=== PATIENT | female | born 1985 | race African-American/Black ===

== ENCOUNTER 2019-02-16 14:43 | Observation (INO) | payer BC, OTHER | END 2019-02-16 17:00 | disposition home or self-care (01) | LOC: MW.OBCHECK 14:43 → MW.OB 14:44 → MW.OBCHECK 15:02 → MW.OB 15:03 | PROVIDERS: ADMIT Obstetrics & Gynecology; ATTEND Obstetrics & Gynecology | DX: O16.3 Unspecified maternal hypertension, third trimester (principal); Z3A.35 35 weeks gestation of pregnancy; Z34.90 Encounter for supervision of normal pregnancy, unspecified, unspecified trimester | CPT/HCPCS: 59025; 81003; 87081; G0378 ==

== ENCOUNTER 2019-05-03 03:34 | Emergency (ER) | payer BC ==
[2019-05-03] MEDS ORDERED: Sodium Chloride 0.9% 1,000 ML IV ONE (04:00)
[2019-05-03 04:30] LABS: BLOOD UREA NITROGEN,BUN 16 mg/dL (7.0-18.0); CARBON DIOXIDE,CO2 26.5 mmol/L (21.0-32.0); CHLORIDE,CL 103 mmol/L (98-107); GLUCOSE RANDOM 108 mg/dL (74-106); POTASSIUM,K 3.7 mmol/L (3.5-5.1); SODIUM,NA 139 mmol/L (136-145)
[2019-05-03] MEDS ORDERED: Iopamidol 755 Mg/ML 100 ML Bottle IVPUSH ONE (04:47)
--- NOTE | 2019-05-03 05:18 | CT ---
INDICATION: Chest and scapular pain with elevated blood pressure. TECHNIQUE: CT chest PE was acquired with 100 cc Isovue 370 intravenous contrast. COMPARISON: None. FINDINGS: Heart and vasculature: Contrast opacification of the pulmonary arterial tree is adequate. No sign of pulmonary embolism. Heart size is normal. Thoracic aorta and pulmonary artery are normal in caliber. Lungs and pleural: No acute consolidation or pneumothorax. Trace right pleural fluid. Lymph nodes/mediastinum: No mediastinal, hilar, or axillary adenopathy. Thyroid gland is normal. Chest wall: No masses. Upper abdomen: Normal. Bones: Unremarkable for age. IMPRESSION: 1. No evidence of pulmonary embolus. 2. Trace right pleural fluid, otherwise unremarkable chest CT. Please note that all CT scans at this facility use dose modulation, iterative reconstruction, and/or weight-based dosing when appropriate to reduce radiation dose to as low as reasonably achievable. Dictated by Jeremy Carroll MD @ May 03 2019 5:06AM Signed by Dr. Jeremy Carroll @ May 03 2019 5:16AM
[2019-05-03] MEDS ORDERED: Ketorolac 30 MG/ML SDV IM ONE (05:23)
[2019-05-03] MEDS ORDERED: Ketorolac 30 MG/ML SDV IVPUSH ONE (05:24)
--- NOTE | 2019-05-03 06:23 | EDM.PDOC ---
ED HPI GENERAL MEDICAL PROBLEM - General Chief Complaint: Back Pain or Injury Stated Complaint: BACK PAIN Time Seen by Provider: 05/03/19 06:14 - History of Present Illness INITIAL COMMENTS - FREE TEXT/NARRATIVE: HISTORY AND PHYSICAL: History of present illness: Patient 33-year-old black female approximately 3 months who presents with a concern of upper back pain is in the right scapular region. There's been no fever chills nausea vomiting cough or shortness of breath. Patient developed some hypertension and was put on nifedipine she felt dizzy with this and discontinued this on her own 3 weeks prior. Review of systems: As per history of present illness and below otherwise all systems reviewed and negative. Past medical history: As per history of present illness and as reviewed below otherwise noncontributory. Surgical history: As per history of present illness and as reviewed below otherwise noncontributory. Social history: No reported history of drug or alcohol abuse. Family history: As per history of present illness and as reviewed below otherwise noncontributory. Physical exam: HEENT: Atraumatic, normocephalic, pupils reactive, negative for conjunctival pallor or scleral icterus, mucous membranes moist, throat clear, neck supple, nontender, trachea midline. Lungs: Clear to auscultation, breath sounds equal bilaterally, chest nontender. Heart: S1S2, regular, negative for clicks, rubs, or JVD. Abdomen: Soft, nondistended, nontender. Negative for masses or hepatosplenomegaly. Negative for costovertebral tenderness. Pelvis: Stable nontender. Genitourinary: Deferred. Rectal: Deferred. Extremities: Atraumatic, negative for cords or calf pain. Neurovascular unremarkable. Neuro: Awake, alert, oriented. Cranial nerves II through XII unremarkable. Cerebellum unremarkable. Motor and sensory unremarkable throughout. Exam nonfocal. Diagnostics: CBC CMP troponin PT/INR d-dimer CTA chest Therapeutics: Saline 1 L bolus Toradol 30 mg IV Impression: #1 upper back pain Definitive disposition and diagnosis as appropriate pending reevaluation and review of above. Right Shoulder Pain Score (Numeric/FACES): 9 - Related Data Allergies Allergy/AdvReac Type Severity Reaction Status Date / Time No Known Allergies Allergy Verified 05/03/19 03:41 Home Meds: Home Meds . [No Known Home Meds] 05/03/19 [History] Past Medical History - Past Health History Medical/Surgical History: Denies Medical/Surgical History HEENT History: Reports: None Cardiovascular History: Reports: Hypertension Respiratory History: Reports: None Gastrointestinal History: Reports: None Genitourinary History: Reports: None [employer] History: Reports: Musculoskeletal History: Reports: None Neurological History: Reports: None Psychiatric History: Reports: None Endocrine/Metabolic History: Reports: None Hematologic History: Reports: None Immunologic History: Reports: None Oncologic (Cancer) History: Reports: None Dermatologic History: Reports: None - Infectious Disease History Infectious Disease History: Reports: Chicken Pox - Past Imaging History Past Imaging History: Reports: None Social & Family History - Family History Family Medical History: Noncontributory Endocrine/Metabolic: Reports: Diabetes, type II - Tobacco Use Smoking Status *Q: Never Smoker Second Hand Smoke Exposure: No - Caffeine Use Caffeine Use: Reports: None - Recreational Drug Use Recreational Drug Use: No ED ROS GENERAL - Review of Systems Review Of Systems: ROS reveals no pertinent complaints other than HPI. ED EXAM, GENERAL - Physical Exam Exam: See Below (See dictation) Course - Vital Signs Text/Narrative:: I discussed patient's presentation low-pressure and medical noncompliance regarding her hypertension with Dr. mullins he requested she follow up with primary care for reevaluation of blood pressure and agrees with Delfina as directed impression remains #1 upper back pain #2 pleurisy #3 hypertension #4 medical noncompliance Last Recorded V/S: Last Vital Signs Temp 36.5 C 05/03/19 03:42 Pulse 84 05/03/19 06:25 Resp 18 05/03/19 06:25 BP 189/102 H 05/03/19 06:25 Pulse Ox 98 05/03/19 06:25 - Orders/Labs/Meds Orders: Active Orders 24 hr Category Date Time Status EKG Documentation Completion [RC] STAT Care 05/03/19 04:00 Active INR,PT,PROTHROMBIN TIME [COAG] Stat Lab 05/03/19 06:21 Received TROPONIN I [CHEM] Stat Lab 05/03/19 04:00 Received Labs: Laboratory Tests 05/03/19 05/03/19 05/03/19 Range/Units 04:00 04:00 04:00 WBC 8.28 (4.0-11.0) K/uL RBC 5.15 (4.30-5.90) M/uL Hgb 14.5 (12.0-16.0) g/dL Hct 44.4 (36.0-46.0) % MCV 86.2 (80.0-98.0) fL MCH 28.2 (27.0-32.0) pg MCHC 32.7 (31.0-37.0) g/dL RDW Std Deviation 42.8 (28.0-62.0) fl RDW Coeff of Jo 14 (11.0-15.0) % Plt Count 239 (150-400) K/uL MPV 10.50 (7.40-12.00) fL Neut % (Auto) 57.8 (48.0-80.0) % Lymph % (Auto) 31.0 (16.0-40.0) % Geary % (Auto) 10.4 (0.0-15.0) % Eos % (Auto) 0.7 (0.0-7.0) % Baso % (Auto) 0.1 (0.0-1.5) % Neut # (Auto) 4.8 (1.4-5.7) K/uL Lymph # (Auto) 2.6 H (0.6-2.4) K/uL Geary # (Auto) 0.9 H (0.0-0.8) K/uL Eos # (Auto) 0.1 (0.0-0.7) K/uL Baso # (Auto) 0.0 (0.0-0.1) K/uL Nucleated RBC % 0.0 /100WBC Nucleated RBCs # 0 K/uL D-Dimer, Quantitative 0.23 (0.0-0.50) mg/L FEU Sodium 139 (136-145) mmol/L Potassium 3.7 (3.5-5.1) mmol/L Chloride 103 (98-107) mmol/L Carbon Dioxide 26.5 (21.0-32.0) mmol/L BUN 16 (7.0-18.0) mg/dL Creatinine 0.9 (0.6-1.0) mg/dL Est Cr Clr Drug Dosing 88.07 mL/min Estimated GFR (MDRD) > 60.0 ml/min Glucose 108 H (74-106) mg/dL Calcium 9.0 (8.5-10.1) mg/dL Total Bilirubin 0.5 (0.2-1.0) mg/dL AST 14 L (15-37) IU/L ALT 25 (14-63) IU/L Alkaline Phosphatase 78 (46-116) U/L Total Protein 8.2 (6.4-8.2) g/dL Albumin 4.0 (3.4-5.0) g/dL Globulin 4.2 H (2.6-4.0) g/dL Albumin/Globulin Ratio 1.0 (0.9-1.6) Urine Color Urine Appearance Urine pH (5.0-8.0) Ur Specific Burr (1.001-1.035) Urine Protein (NEGATIVE) mg/dL Urine Glucose (UA) (NEGATIVE) mg/dL Urine Ketones (NEGATIVE) mg/dL Urine Occult Blood (NEGATIVE) Urine Nitrite (NEGATIVE) Urine Bilirubin (NEGATIVE) Urine Urobilinogen (<2.0) EU/dL Ur Leukocyte Esterase (NEGATIVE) Urine HCG, Qual (NEGATIVE) 05/03/19 05/03/19 Range/Units 04:20 04:20 WBC (4.0-11.0) K/uL RBC (4.30-5.90) M/uL Hgb (12.0-16.0) g/dL Hct (36.0-46.0) % MCV (80.0-98.0) fL MCH (27.0-32.0) pg MCHC (31.0-37.0) g/dL RDW Std Deviation (28.0-62.0) fl RDW Coeff of Jo (11.0-15.0) % Plt Count (150-400) K/uL MPV (7.40-12.00) fL Neut % (Auto) (48.0-80.0) % Lymph % (Auto) (16.0-40.0) % Geary % (Auto) (0.0-15.0) % Eos % (Auto) (0.0-7.0) % Baso % (Auto) (0.0-1.5) % Neut # (Auto) (1.4-5.7) K/uL Lymph # (Auto) (0.6-2.4) K/uL Geary # (Auto) (0.0-0.8) K/uL Eos # (Auto) (0.0-0.7) K/uL Baso # (Auto) (0.0-0.1) K/uL Nucleated RBC % /100WBC Nucleated RBCs # K/uL D-Dimer, Quantitative (0.0-0.50) mg/L FEU Sodium (136-145) mmol/L Potassium (3.5-5.1) mmol/L Chloride (98-107) mmol/L Carbon Dioxide (21.0-32.0) mmol/L BUN (7.0-18.0) mg/dL Creatinine (0.6-1.0) mg/dL Est Cr Clr Drug Dosing mL/min Estimated GFR (MDRD) ml/min Glucose (74-106) mg/dL Calcium (8.5-10.1) mg/dL Total Bilirubin (0.2-1.0) mg/dL AST (15-37) IU/L ALT (14-63) IU/L Alkaline Phosphatase (46-116) U/L Total Protein (6.4-8.2) g/dL Albumin (3.4-5.0) g/dL Globulin (2.6-4.0) g/dL Albumin/Globulin Ratio (0.9-1.6) Urine Color YELLOW Urine Appearance CLEAR Urine pH 6.5 (5.0-8.0) Ur Specific Burr 1.015 (1.001-1.035) Urine Protein NEGATIVE (NEGATIVE) mg/dL Urine Glucose (UA) NEGATIVE (NEGATIVE) mg/dL Urine Ketones NEGATIVE (NEGATIVE) mg/dL Urine Occult Blood NEGATIVE (NEGATIVE) Urine Nitrite NEGATIVE (NEGATIVE) Urine Bilirubin NEGATIVE (NEGATIVE) Urine Urobilinogen 0.2 (<2.0) EU/dL Ur Leukocyte Esterase NEGATIVE (NEGATIVE) Urine HCG, Qual NEGATIVE (NEGATIVE) Meds: Medications Discontinued Medications Generic Name Dose Route Start Last Admin Trade Name Freq PRN Reason Stop Dose Admin Sodium Chloride 1,000 mls @ 999 mls/hr 05/03/19 04:00 05/03/19 04:07 Normal Saline IV 05/03/19 05:00 999 mls/hr .BOLUS ONE Administration Iopamidol 100 ml 05/03/19 04:47 05/03/19 04:58 Isovue-370 (76%) IVPUSH 10/28/19 04:48 100 ml ONETIME ONE Administration Ketorolac Tromethamine 30 mg 05/03/19 05:24 05/03/19 05:29 Toradol IVPUSH 05/03/19 05:25 30 mg ONETIME ONE Administration Departure - Departure Time of Disposition: 06:22 Disposition: Home, Self-Care 01 Condition: Good Clinical Impression: Back pain, Pleurisy, Hypertension, Medical non-compliance - Discharge Information Instructions: Pleurisy, [id number] Referrals: PCP,None [Primary Care Provider] - Forms: ED Department Discharge Additional Instructions: The following information is given to patients seen in the emergency department who are being discharged to home. This information is to outline your options for follow-up care. We provide all patients seen in our emergency department with a follow-up referral. The need for follow-up, as well as the timing and circumstances, are variable depending upon the specifics of your emergency department visit. If you don't have a primary care physician on staff, we will provide you with a referral. We always advise you to contact your personal physician following an emergency department visit to inform them of the circumstance of the visit and for follow-up with them and/or the need for any referrals to a consulting specialist. The emergency department will also refer you to a specialist when appropriate. This referral assures that you have the opportunity for followup care with a specialist. All of these measure are taken in an effort to provide you with optimal care, which includes your followup. Under all circumstances we always encourage you to contact your private physician who remains a resource for coordinating your care. When calling for followup care, please make the office aware that this follow-up is from your recent emergency room visit. If for any reason you are refused follow-up, please contact the [facility] emergency department at and asked to speak to the emergency department charge nurse. Delfina as directed follow-up [employer] and primary care as discussed return as needed as discussed - My Orders Last 24 Hours: My Active Orders 05/03/19 04:00 EKG Documentation Completion [RC] STAT TROPONIN I [CHEM] Stat 05/03/19 06:21 INR,PT,PROTHROMBIN TIME [COAG] Stat - Assessment/Plan Last 24 Hours: My Active Orders 05/03/19 04:00 EKG Documentation Completion [RC] STAT TROPONIN I [CHEM] Stat 05/03/19 06:21 INR,PT,PROTHROMBIN TIME [COAG] Stat
[2019-05-03 06:25] VITALS: BP 189/102; PULSE 84
== END 2019-05-03 06:42 | disposition home or self-care (01) ==
LOC: MW.ED 03:34
DX: M54.6 Pain in thoracic spine (principal); R09.1 Pleurisy; I10 Essential (primary) hypertension; Z91.14 Patient's other noncompliance with medication regimen
CPT/HCPCS: 36415; 71275; 80053; 81003; 81025; 84484; 85025; 85379; 85610; 93005; 96361; 96374; 99284; J1885; J7040; Q9967

== ENCOUNTER 2019-09-14 14:11 | Emergency (ER) | payer BC ==
--- NOTE | 2019-09-14 15:38 | CR ---
Chest: 2 views of the chest were obtained. Comparison: No prior chest x-ray, previous chest CT dated 05/03/19. Heart size and mediastinum are normal. Lungs are clear with no acute parenchymal change. Bony structures appear unremarkable. Impression: 1. Nothing acute is appreciated on 2 view chest x-ray. Diagnostic code #1 This report was dictated in [place] Standard Time
[2019-09-14 15:43] LABS: BLOOD UREA NITROGEN,BUN 10 mg/dL (7.0-18.0); CARBON DIOXIDE,CO2 23.3 mmol/L (21.0-32.0); CHLORIDE,CL 103 mmol/L (98-107); GLUCOSE RANDOM 91 mg/dL (74-106); POTASSIUM,K 3.4 mmol/L (3.5-5.1); SODIUM,NA 139 mmol/L (136-145)
--- NOTE | 2019-09-14 17:04 | EDM.PDOC ---
ED [facility] GENERAL MEDICAL PROBLEM - General Chief Complaint: Chest Pain Stated Complaint: CHEST PAIN Time Seen by Provider: 09/14/19 14:21 - History of Present Illness INITIAL COMMENTS - FREE TEXT/NARRATIVE: HPI 34-year-old female with HTN presents for evaluation of proximally 3 days of poorly characterize left upper chest pain that is provoked by palpation, and is unchanged by physical activity. No shortness breath, no fevers, chills, or trauma. Patient denies recent immobilization, leg trauma, estrogen use, surgery in the last four weeks, hemoptysis, or malignancy in the last 6 months. M/S/F/SocHx notable for: please see HPI; remainder reviewed with patient and in chart. ROS: Negative constitutional, eye, cardiovascular, pulmonary, GI, , MSK, skin , neurologic, psychiatric, endocrine unless noted in the HPI. Exam Gen: Pleasant, non-toxic appearing, resting comfortably. HEENT: NC, AT, PEERL, EOMI. Resp: Clear to auscultation bilaterally, normal work of breathing. Card: RRR with no M/R/G, no crackles in lung bases, no pedal edema, no JVD appreciated. GI: NT/ND Vascular: Both ankles, calves, and thighs of equal size, no calf tenderness to palpation bilaterally. MSK: left upper medial pectoral tenderness to palpation that reproduces the patients presenting complaint. No visible deformities, strength and tone WNL. Skin: Normal color with no visible lesions. Neuro: AO x 3, no facial asymmetry, vision and hearing WNL. Psych: Mood and affect appropriate. Labs / Imaging (pertinent): WBC 6.32, Hb 13.2, Na 139, K 3.4. Troponin <0.050 d-dimer 0.22 d-dimer 0.22 EKG: EKG: SR 104 bpm, no TX segment depressions, QRS 91 ms, nonspecific J-point depression in leads V3-V6. CXR: nothing acute is appreciated on 2 view chest x-ray. MDM Previous chart, nursing note, and vitals reviewed. A: 34-year-old female with HTN presents for evaluation of proximally 3 days of poorly characterize left upper chest pain that is provoked by palpation, and is unchanged by physical activity. DDx and Evaluation: * ACS - doubt ACS given a non-ischemic EKG and a negative troponin greater than six hours from maximal symptom onset. * UA - unlikely given the atypical history and alternate diagnosis. HEART score 2 (Hx - 0, EKG - 1, age - 0, risk factors - 1, troponin - 0; 30 day MACE: less than or equal to 1.7%). Patient appropriate for outpatient follow-up. * Pericarditis - consider pericarditis unlikely given the lack of TX segment depressions as well as the absence of diffuse ST-segment elevations, lack of reduction of pain when supine, and lack of a friction rub. * Myocarditis - unlikely given the negative troponin and an EKG without characteristic TX-segment or ST-segment changes. * Dissection - dissection is unlikely given symptoms, and lack of mediastinal widening. * PE Wells' (Signs & Sx of DVT - 0, PE is #1 or equally likelihood - 0, HR > 100 - [1.5], immobilization of >=3 days or surgery in last 28 days - 0, prior DVT or PE - 0, hemoptysis - 0, malignancy w/ tx in last 6 mo or palliative - 0) 1.5; as such the patients negative d-dimer is appropriate for PE rule out/risk stratification. * Mediastinal Air - no evidence by CXR or auscultation. * Pneumothorax - no evidence by CXR or physical exam. * MSK - doubt given lack of reproducibility on exam. * Endocarditis - no identifiable risk factors, patient afebrile, no new murmurs appreciated on exam; doubt. * GI (Esophageal rupture, GERD) - esophageal rupture effectively excluded given the lack of mediastinal widening, non-toxic appearance, and lack of identifiable risk factors. While not definitively excluded, further evaluation of GERD is deferred to an outpatient setting Suspect GERD given the relatively exclusion of the above diagnoses as well as significant relief with a GI cocktail. ED Course: Vital signs remained stable and within clinically acceptable limits. Disposition: Discharge with PCP follow up. Return to care precautions given verbally and in writing. Impression: Chest Pain. 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: Musculoskeletal History: Reports: None Neurological History: Reports: None Psychiatric History: Reports: None Endocrine/Metabolic History: Reports: None Hematologic History: Reports: None Immunologic History: Reports: None Oncologic (Cancer) History: Reports: None Dermatologic History: Reports: None - Infectious Disease History Infectious Disease History: Reports: Chicken Pox - Past Imaging History Past Imaging History: Reports: None Social & Family History - Family History Family Medical History: Noncontributory Endocrine/Metabolic: Reports: Diabetes, type II - Tobacco Use Smoking Status *Q: Never Smoker - Caffeine Use Caffeine Use: Reports: None - Recreational Drug Use Recreational Drug Use: No ED ROS GENERAL - Review of Systems Review Of Systems: See Below ED EXAM, GENERAL - Physical Exam Exam: See Below Course - Vital Signs Last Recorded V/S: Last Vital Signs Temp 36.4 C 09/14/19 14:24 Pulse 111 H 09/14/19 14:24 Resp 18 09/14/19 14:24 BP 184/103 H 09/14/19 14:24 Pulse Ox 100 09/14/19 14:24 - Orders/Labs/Meds Orders: Active Orders 24 hr Category Date Time Status EKG 12 Lead [EKG Documentation Completion] [RC] STAT Care 09/14/19 14:56 Active Labs: Laboratory Tests 09/14/19 09/14/19 09/14/19 Range/Units 14:50 14:50 14:50 WBC 6.32 (4.0-11.0) K/uL RBC 4.77 (4.30-5.90) M/uL Hgb 13.2 (12.0-16.0) g/dL Hct 40.5 (36.0-46.0) % MCV 84.9 (80.0-98.0) fL MCH 27.7 (27.0-32.0) pg MCHC 32.6 (31.0-37.0) g/dL RDW Std Deviation 40.8 (28.0-62.0) fl RDW Coeff of Jo 13 (11.0-15.0) % Plt Count 251 (150-400) K/uL MPV 10.30 (7.40-12.00) fL Neut % (Auto) 36.7 L (48.0-80.0) % Lymph % (Auto) 55.2 H (16.0-40.0) % [place] % (Auto) 7.3 (0.0-15.0) % Eos % (Auto) 0.6 (0.0-7.0) % Baso % (Auto) 0.2 (0.0-1.5) % Neut # (Auto) 2.3 (1.4-5.7) K/uL Lymph # (Auto) 3.5 H (0.6-2.4) K/uL [place] # (Auto) 0.5 (0.0-0.8) K/uL Eos # (Auto) 0.0 (0.0-0.7) K/uL Baso # (Auto) 0.0 (0.0-0.1) K/uL Nucleated RBC % 0.0 /100WBC Nucleated RBCs # 0 K/uL D-Dimer, Quantitative 0.22 (0.0-0.50) mg/L FEU Sodium 139 (136-145) mmol/L Potassium 3.4 L (3.5-5.1) mmol/L Chloride 103 (98-107) mmol/L Carbon Dioxide 23.3 (21.0-32.0) mmol/L BUN 10 (7.0-18.0) mg/dL Creatinine 0.7 (0.6-1.0) mg/dL Est Cr Clr Drug Dosing 116.39 mL/min Estimated GFR (MDRD) > 60.0 ml/min Glucose 91 (74-106) mg/dL Calcium 9.7 (8.5-10.1) mg/dL Troponin I < 0.050 (0.000-0.056) ng/mL Departure - Departure Time of Disposition: 17:03 Disposition: Home, Self-Care 01 Clinical Impression: Chest pain - Discharge Information Referrals: Yared Bagley DO [Primary Care Provider] - Additional Instructions: You were in seen in the [facility] Emergency Department for evaluation of chest pain at the time of your evaluation no significant abnormalities were noted. Please read and follow all of the instructions below. Please follow up with your primary care physician within 48 hours. When calling for follow-up care, please make the office aware that this follow-up is from your recent emergency room visit. If for any reason you are refused follow-up, please contact the [facility] Emergency Department at and asked to speak to the emergency department charge nurse. Your care today was limited to identifying and treating emergent medical problems only. Many people have subtle differences in their test results that require follow up with their outpatient physician(s) to correctly determine if this represents a normal variation or concerning abnormality with respect to your specific health. The care given to you today was limited to identifying and treating emergent medical problems - you need to request a copy of all of your medical records from today's visit and follow up with your outpatient physician(s) to review both today's visit and your overall health. If you have any new symptoms or if you are at all concerned about your health please return immediately to the emergency department. Prescriptions: If you are uninsured or have financial difficulties with filling your prescription(s), you may consider using a free pharmacy discount service such as Studio ([employer]) or Fridge ([employer]). These services allow you to search for a medication on your phone (or computer) and obtain a coupon that usually has a significant discount from the list [place] at a pharmacy. Your physician as well as [facility] does not have a financial relationship with either of these services. You may also wish to speak with your physician to determine if lower cost prescriptions are possible. Obtaining primary care: 1. [facility] provides pediatrics (children), family medicine (children, adults, and some obstetrical care), and internal medicine (adults). Further specialty care is also available. Same day appointments are available. They may be contacted at [phone] and are open Friday through Friday 8 AM to 5 PM. The [facility] are located at [facility] [address] [address]. 2. [facility] offers family medicine, internal medicine, womens health, and further specialty care. [facility] may be contacted at [phone]. [facility] is located at [address] [place], [address]. 3. If you have health insurance, please also contact your insurer for a list of accepting providers under your policy, you may contact these providers for further health care. Occupational health: Work related injuries may consider following up with [facility], . Occupational health services are located at [address] [place] [address] and are open Friday through Friday from 7: 30 am to 5:00 pm. Obstetrical and Gynecological Care: [facility], , Friday through Friday 8 AM to 5 PM. [address] [facility] [place] [address]. Eyecare: If you have an eye injury you should follow up with your certified professional ergonomist or with [facility], at [phone] or [phone] , they are located at [address] [place] [address]. Dental Care Abel Molina DDS. [address] [place], [place]. Ph. [phone] Deandre Molina DDS MS. [address] [facility] [address], [place], [place]. Ph. Bobby Wang DDS. [address] [place] [address]. Ph. [phone] Jude Sanchez DDS[address] [facility] [address] [place], [place]. Ph. [phone] Kirk Hair DDS PC. [address] [facility] [address] [place], [place]. Ph. Roland Lama DDS. [address] [facility]. Ph. [phone] [facility]. [address] [place], [place]. Ph. [phone] [facility] [address] [place] [address], [place], [place]. Ph. [phone] [facility] [address] [place] [address]. Ph. [facility]. [address] [place] [address] [address] COLT Nicole. Ph. [facility]. [address] [facility] [place]. Ph. [phone] Chest Pain of Unclear Cause You have been seen for chest pain. The cause of your pain is not yet known. You should follow up with your primary care physician in the next day to discuss having a cardiac stress test within 48 hours of today. Your doctor has learned about your medical history, examined you, and checked any tests that were done. Still, it is unclear why you are having pain. The doctor thinks there is only a very small chance that your pain is caused by a life-threatening condition. Later, your primary care doctor might do more tests or check you again. Sometimes chest pain is caused by a dangerous condition, like a heart attack, aorta injury, blood clot in the lung, or collapsed lung. It is unlikely that your pain is caused by a life-threatening condition if: Your chest pain lasts only a few seconds at a time; you are not short of breath, nauseated (sick to your stomach), sweaty, or lightheaded; your pain gets worse when you twist or bend; your pain improves with exercise or hard work. Chest pain is serious. It is VERY IMPORTANT that you follow up with your regular doctor and seek medical attention immediately here or at the nearest Emergency Department if your symptoms become worse or they change. YOU SHOULD SEEK MEDICAL ATTENTION IMMEDIATELY, EITHER HERE OR AT THE NEAREST EMERGENCY DEPARTMENT, IF ANY OF THE FOLLOWING OCCURS: Your pain gets worse. Your pain makes you short of breath, nauseated, or sweaty. Your pain gets worse when you walk, go up stairs, or exert yourself. You feel weak, lightheaded, or faint. It hurts to breathe. Your leg swells. Your symptoms get worse or you have new symptoms or concerns. Sepsis Event Note - Evaluation Sepsis Screening Result: No Definite Risk - Focused Exam Vital Signs: Vital Signs Temp Pulse Resp BP Pulse Ox 09/14/19 14:24 36.4 C 111 H 18 184/103 H 100 Date Exam was Performed: 09/14/19 Time Exam was Performed: 17:03 - My Orders Last 24 Hours: My Active Orders 09/14/19 14:56 EKG 12 Lead [EKG Documentation Completion] [RC] STAT - Assessment/Plan Last 24 Hours: My Active Orders 09/14/19 14:56 EKG 12 Lead [EKG Documentation Completion] [RC] STAT
[2019-09-14 17:11] VITALS: BP 155/104; PULSE 90
== END 2019-09-14 17:29 | disposition home or self-care (01) ==
LOC: MW.ED 14:11
DX: R07.9 Chest pain, unspecified (principal); I10 Essential (primary) hypertension
CPT/HCPCS: 36415; 71046; 71046-26; 80048; 84484; 85025; 85379; 93005; 99285-25

== ENCOUNTER 2021-04-16 03:03 | Inpatient (IN) | payer BC ==
[2021-04-16] MEDS ORDERED: Tranexamic Acid 1,000 MG in Sodium Chloride 0.9% 100 ML IV PRN (03:35)
[2021-04-16] MEDS ORDERED: Sodium Chloride 0.9% 2.5 ML Syringe FLUSH PRN (03:35)
[2021-04-16] MEDS ORDERED: Sodium Chloride 0.9% 10 ML SDV IV PRN (03:35)
[2021-04-16] MEDS ORDERED: Misoprostol 200 MCG Tab PO PRN (03:35)
[2021-04-16] MEDS ORDERED: Water For Irrigation,Sterile 1,000 ML Container IRR PRN (03:35)
[2021-04-16] MEDS ORDERED: Carboprost Tromethamine 250 MCG/1 ML Amp IM PRN (03:35)
[2021-04-16] MEDS ORDERED: Lidocaine 1% 50 ML MDV INJECT PRN (03:35)
[2021-04-16] MEDS ORDERED: Methylergonovine 0.2 MG/1 ML Amp IM PRN (03:35)
[2021-04-16] MEDS ORDERED: Sodium Chloride 0.9% 10 ML Syringe FLUSH PRN (03:35)
[2021-04-16] MEDS ORDERED: Nalbuphine 10 MG/1 ML Vial IVPUSH PRN (03:35)
[2021-04-16] MEDS ORDERED: Ondansetron 4 MG/2 ML SDV IVPUSH PRN (03:35)
[2021-04-16] MEDS ORDERED: Oxytocin/0.9 % Sodium Chloride 30 UNIT/500 ML BAG IV SCH (03:45)
[2021-04-16] MEDS ORDERED: Lactated Ringers 1,000 ML IV SCH (03:45)
--- NOTE | 2021-04-16 04:13 | PCM.LDHP ---
L&D History of Present Illness - General Date of Service: 04/16/21 Admit Problem/Dx: Patient Status Order with Admit Dx/Problem 04/16/21 03:35 Patient Status [ADT] Routine Admission Diagnosis/Problem Admission Diagnosis/Problem 04/16/21 04:13 is a 35 yo at 37+5 weeks gestation (CHRISTOPHER(LMP) 05/02/2021) that presents today w/ C/O painful contractions since 0200, SROM today on L&D at 4:00 am today evidenced by small to moderate clear, non-odorous gush of fluid with CNM at bedside. O pos, Ab screen neg, RI, GBS neg. Reports + FM; denies vaginal bleeding at this time. Unremarkable course. H/O CHTN. Patient confirmed vertex via SVE. 04/16/21 04:14 Source of Information: Patient History Limitations: Reports: No Limitations - History of Present Illness Improves with: Reports: None Worsens with: Reports: None Associated Symptoms: Reports: N - Related Data Allergies/Adverse Reactions: Allergies Allergy/AdvReac Type Severity Reaction Status Date / Time No Known Allergies Allergy Verified 04/07/21 20:01 Home Medications: Home Meds Aspirin 2 tab PO DAILY 03/26/21 [History] Labetalol HCl [Labetalol] 400 mg PO BID 03/26/21 [History] Omeprazole 10 mg PO ASDIRECTED PRN 03/26/21 [History] Past Medical History - Past Health History Medical/Surgical History: Denies Medical/Surgical History HEENT History: Reports: None Cardiovascular History: Reports: Hypertension Respiratory History: Reports: None Gastrointestinal History: Reports: None Genitourinary History: Reports: None 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: , 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 : 4 Para: 2 LMP (Approximate): Musculoskeletal History: Reports: None Neurological History: Reports: None Psychiatric History: Reports: None Endocrine/Metabolic History: Reports: None Hematologic History: Reports: None Immunologic History: Reports: None Oncologic (Cancer) History: Reports: None Dermatologic History: Reports: None - Infectious Disease History Infectious Disease History: Reports: Chicken Pox - Past Surgical History Head Surgeries/Procedures: Reports: None HEENT Surgical History: Reports: None Cardiovascular Surgical History: Reports: None Respiratory Surgical History: Reports: None GI Surgical History: Reports: None Female Surgical History: Reports: None Endocrine Surgical History: Reports: None Neurological Surgical History: Reports: None Musculoskeletal Surgical History: Reports: None Oncologic Surgical History: Reports: None Dermatological Surgical History: Reports: None - Past Imaging History Past Imaging History: Reports: None Social & Family History - Family History Family Medical History: No Pertinent Family History Endocrine/Metabolic: Reports: Diabetes, type II - Caffeine Use Caffeine Use: Reports: None H&P Review of Systems - Review of Systems: Review Of Systems: Comprehensive ROS is negative, except as noted in HPI. General: Reports: No Symptoms HEENT: Reports: No Symptoms Pulmonary: Reports: No Symptoms Cardiovascular: Reports: No Symptoms Gastrointestinal: Reports: No Symptoms Genitourinary: Reports: No Symptoms Musculoskeletal: Reports: No Symptoms Skin: Reports: No Symptoms Psychiatric: Reports: No Symptoms Neurological: Reports: No Symptoms Hematologic/Lymphatic: Reports: No Symptoms Immunologic: Reports: No Symptoms L&D Exam - Exam Exam: See Below - Vital Signs Vital Signs: VSS, mild hypertension consistent with chronic BPs 140s/90s, afebrile. See flowsheet. - OB Specific Fundal Height In cm: 37 Contraction Duration (sec): 60-90 Contraction Frequency (min): 1-3 Contraction Intensity: Moderate to Strong Movement: Active Heart Tones: Present Heart Tones per Min: 130 Heart Rate (FHR) Variability: Moderate (6-25 bpm) Presentation: Vertex - Mayorga Score Mayorga Score Cervix Position: Midposition [place]orga Score Consistency: Soft [place]a Score Effacement: >80% [place]orga Score Dilation: > 5 cm Mayorga Score Infant's Station: -2 [place]orga Score Total: 10 - Exam General: Alert, Oriented, Cooperative, Mild Distress HEENT: Conjunctiva Clear, Hearing Intact, Mucosa Moist & [place], PERRLA Neck: Supple, Trachea Midline Lungs: Clear to Auscultation, Normal Respiratory Effort Cardiovascular: Regular Rate, Regular Rhythm GI/Abdominal Exam: Normal Bowel Sounds, Soft, Non-Tender, No Organomegaly, No Distention Rectal Exam: Deferred Genitourinary: Normal external exam, Enlarged uterus (Gravid uterus), Vaginal discharge (Small to moderate clear, non-odorous amniotic fluid) Back Exam: Normal Inspection, Full Range of Motion Extremities: Normal Inspection, Normal Range of Motion, Non-Tender, No Pedal Edema, Normal Capillary Refill Skin: Warm, Dry, Intact Neurological: Cranial Nerves Intact, Reflexes Equal Bilateral Psychiatric: Alert, Normal Affect, Normal Mood - Problem List (1) Uterine contractions SNOMED Code(s): 980931903 ICD Code: O47.9 - FALSE LABOR, UNSPECIFIED Status: Acute Priority: High Current Visit: Yes (2) 37 weeks gestation of SNOMED Code(s): 89933085 ICD Code: Z3A.37 - 37 WEEKS GESTATION OF Status: Acute Priority: High Current Visit: Yes Problem List Initiated/Reviewed/Updated: Yes Orders Last 24hrs: Active Orders 24 hr Category Date Time Status Patient Status [ADT] Routine ADT 04/16/21 03:35 Active Heart Tones [RC] CONTINUOUS Care 04/16/21 03:35 Active Non Stress Test [RC] PER UNIT ROUTINE Care 04/16/21 03:35 Active May Shower [RC] ASDIRECTED Care 04/16/21 03:35 Active Notify Provider [RC] PRN Care 04/16/21 03:35 Active Peripheral IV Care [RC] PRN Care 04/16/21 03:35 Active Up ad Yareli [RC] ASDIRECTED Care 04/16/21 03:35 Active Vaginal Exam [RC] PRN Care 04/16/21 03:35 Active Vital Signs [RC] PER UNIT ROUTINE Care 04/16/21 03:35 Active CBC W/O DIFF,HEMOGRAM [HEME] Routine Lab 04/16/21 03:35 Ordered CMP [COMPREHENSIVE METABOLIC PN,CMP] [CHEM] Routine Lab 04/16/21 04:11 Ordered RPR (SYPHILIS SERO) W/ RFLX [REF] Routine Lab 04/16/21 03:35 Ordered TYPE AND SCREEN [BBK] Routine Lab 04/16/21 03:35 Ordered Carboprost Tromethamine [Hemabate DS] Med 04/16/21 03:35 Active 250 mcg IM ASDIRECTED PRN Lactated Ringers [Ringers, Lactated] 1,000 ml Med 04/16/21 03:45 Active IV ASDIRECTED Lidocaine 1% [Xylocaine 1%] Med 04/16/21 03:35 Active 50 ml INJECT ONETIME PRN Methylergonovine [Methergine] Med 04/16/21 03:35 Active 0.2 mg IM ASDIRECTED PRN Nalbuphine [Nubain] Med 04/16/21 03:35 Active 10 mg IVPUSH Q1H PRN Ondansetron [Zofran] Med 04/16/21 03:35 Active 4 mg IVPUSH Q6H PRN Oxytocin/0.9 % Sodium Chloride [Oxytocin 30 Unit in NS Med 04/16/21 03:45 Active 0.9% 500 ML Premix] 30 unit in 500 ml IV TITRATE Sodium Chloride 0.9% [Normal Saline] Med 04/16/21 03:35 Active 10 ml IV ASDIRECTED PRN Sodium Chloride 0.9% [Saline Flush] Med 04/16/21 03:35 Active 10 ml FLUSH ASDIRECTED PRN Sodium Chloride 0.9% [Saline Flush] Med 04/16/21 03:35 Active 2.5 ml FLUSH ASDIRECTED PRN Tranexamic Acid [Cyklokapron] 1,000 mg Med 04/16/21 03:35 Active Sodium Chloride 0.9% [Normal Saline] 100 ml IV ONETIME Water For Irrigation,Sterile [Sterile Water for Med 04/16/21 03:35 Active Irrigation] 1,000 ml IRR ASDIRECTED PRN miSOPROStoL [Cytotec] Med 04/16/21 03:35 Active 200 mcg PO ONETIME PRN Scalp Electrode [WOMSER] Per Unit Routine Oth 04/16/21 03:35 Ordered Peripheral IV Insertion Adult [OM.PC] Routine Oth 04/16/21 03:35 Ordered Resuscitation Status Routine Resus Stat 04/16/21 03:35 Ordered Medication Orders Carboprost Tromethamine (Carboprost Tromethamine 250 Mcg/1 Ml Amp) 250 mcg IM ASDIRECTED PRN PRN Reason: Post Hemorrhage Oxytocin/Sodium Chloride (Oxytocin 30 Unit In Ns 0.9% 500 Ml Premix) 30 unit in 500 mls @ 999 mls/hr IV TITRATE TY Tranexamic Acid 1,000 mg/ (Sodium Chloride) 110 mls @ 660 mls/hr IV ONETIME PRN PRN Reason: Bleeding Lactated Ringer's (Ringers, Lactated) 1,000 mls @ 150 mls/hr IV ASDIRECTED TY Lidocaine HCl (Lidocaine 1% 50 Ml Mdv) 50 ml INJECT ONETIME PRN PRN Reason: Laceration repair Methylergonovine Maleate (Methylergonovine 0.2 Mg/1 Ml Amp) 0.2 mg IM ASDIRECTED PRN PRN Reason: Post Hemorrhage Misoprostol (Misoprostol 200 Mcg Tab) 200 mcg PO ONETIME PRN PRN Reason: Post Hemorrhage Nalbuphine HCl (Nalbuphine 10 Mg/1 Ml Vial) 10 mg IVPUSH Q1H PRN PRN Reason: Pain (severe 7-10) Ondansetron HCl (Ondansetron 4 Mg/2 Ml Sdv) 4 mg IVPUSH Q6H PRN PRN Reason: Nausea/Vomiting Sodium Chloride (Sodium Chloride 0.9% 10 Ml Syringe) 10 ml FLUSH ASDIRECTED PRN PRN Reason: Keep Vein Open Sodium Chloride (Sodium Chloride 0.9% 2.5 Ml Syringe) 2.5 ml FLUSH ASDIRECTED PRN PRN Reason: Keep Vein Open Sodium Chloride (Sodium Chloride 0.9% 10 Ml Sdv) 10 ml IV ASDIRECTED PRN PRN Reason: IV Use Sterile Water (Water For Irrigation,Sterile 1,000 Ml Container) 1,000 ml IRR ASDIRECTED PRN PRN Reason: delivery Assessment/Plan Comment:: Admit to inpatient observation for spontaneous onset of labor and SROM in anticipation of of viable, term . Regular diet. 6//-2, soft, mid- position, vertex. Expectant management, plan to reassess cervical dilation at 8 am unless otherwise indicated. May ambulate after reactive NST is achieved, may intermittently monitor per orders. May receive epidural now pending labs. See new orders. Dr. Morin notified and agreeable with POC.
[2021-04-16 04:58] LABS: BLOOD UREA NITROGEN,BUN 10 mg/dL (7.0-18.0); CARBON DIOXIDE,CO2 22.1 mmol/L (21.0-32.0); CHLORIDE,CL 103 mmol/L (98-107); GLUCOSE RANDOM 83 mg/dL (74-106); POTASSIUM,K 3.9 mmol/L (3.5-5.1); SODIUM,NA 138 mmol/L (136-145)
[2021-04-16] MEDS ORDERED: Ibuprofen 400 MG Tab PO PRN (05:15)
[2021-04-16] MEDS ORDERED: Benzocaine/Menthol 20%-0.5% Spray 78 GM Cannister TOP PRN (05:15)
[2021-04-16] MEDS ORDERED: Bisacodyl 10 MG Supp RECTAL PRN (05:15)
[2021-04-16] MEDS ORDERED: Docusate Sodium 100 MG Cap PO PRN (05:15)
[2021-04-16] MEDS ORDERED: Witch Hazel Medicated Pads 40/Jar TOP PRN (05:15)
[2021-04-16] MEDS ORDERED: oxyCODONE 5 MG Tab PO PRN (05:15)
[2021-04-16] MEDS ORDERED: Acetaminophen 500 MG Tab PO PRN ×2 (05:15)
--- NOTE | 2021-04-16 05:20 | PCM.DEL ---
L & D Note - General Info Date of Service: 04/16/21 Mother's Due Date: 05/02/21 - Delivery Note Labor: Spontaneous Delivery Method: Spontaneous Vaginal Delivery-Single Delivery Mode: Spontaneous Presentation: Right Occiput Anterior (QUEENIE) Nuchal Cord: None Anesthesia Type: None Amniotic Fluid Description: Clear Episiotomy Type: None Laceration: None Placenta: Intact, Spontaneous Cord: 3 Vessels Estimated Blood Loss: 350 Resuscitation Needed: No : Stimulated, Warmed, [place] Used Score 1 min: 8 Score 5 min: 9 Delivery Comments (Free Text/Narrative):: is a 35 yo current 1-1-2 immediately s/p at 37+5 weeks gestation (CHRISTOPHER(LMP) 05/02/2021) following onset of spontaneous labor at 0200 with subsequent SROM today on L&D at 4:00 am today. O pos, Ab screen neg, RI, GBS neg. Unmedicated, coping well and open to ques. head birthed easily QUEENIE with body immediately following with next push. NBF placed to maternal abdomen skin to skin, warmed, dried, stimulated with spontaneous cries immediately following . IV pitocin bolus started for active third stage management. Placenta birthed ~ min s/p NBF, intact, George, 3VC. Uterus firm U-2, scant to small rubra lochia, no clots. Perineum intact. EBL 350. APGARS 8/9. weight 3630 g (8 lb 0 oz) - General Info Date of Service: 04/16/21 Admission Dx/Problem (Free Text): Patient Status Order with Admit Dx/Problem 04/16/21 03:35 Patient Status [ADT] Routine Admission Diagnosis/Problem Admission Diagnosis/Problem 04/16/21 04:13 is a 35 yo at 37+5 weeks gestation (CHRISTOPHER(LMP) 05/02/2021) that presents today w/ C/O painful contractions since 0200, SROM today on L&D at 4:00 am today evidenced by small to moderate clear, non-odorous gush of fluid with CNM at bedside. O pos, Ab screen neg, RI, GBS neg. Reports + FM; denies vaginal bleeding at this time. Unremarkable course. H/O CHTN. Patient confirmed vertex via SVE. 04/16/21 04:14 Functional Status: Reports: Pain Controlled, Tolerating Diet, Ambulating, Urinating - Review of Systems General: Reports: No Symptoms HEENT: Reports: No Symptoms Pulmonary: Reports: No Symptoms Cardiovascular: Reports: No Symptoms Gastrointestinal: Reports: No Symptoms Genitourinary: Reports: No Symptoms Musculoskeletal: Reports: No Symptoms Skin: Reports: No Symptoms Neurological: Reports: No Symptoms Psychiatric: Reports: No Symptoms - Patient Data Vitals - Most Recent: VSS, afebrile. Chronic hypertension, BPs Lab Results Last 24 Hours: Laboratory Results - last 24 hr 04/16/21 04/16/21 04/16/21 Range/Units 04:10 04:10 04:10 WBC 5.97 (4.0-11.0) K/uL RBC 4.08 L (4.30-5.90) M/uL Hgb 10.7 L (12.0-16.0) g/dL Hct 33.6 L (36.0-46.0) % MCV 82.4 (80.0-98.0) fL MCH 26.2 L (27.0-32.0) pg MCHC 31.8 (31.0-37.0) g/dL RDW Std Deviation 38.9 (28.0-62.0) fl RDW Coeff of Jo 13 (11.0-15.0) % Plt Count 221 (150-400) K/uL MPV 11.40 (7.40-12.00) fL Sodium 138 (136-145) mmol/L Potassium 3.9 (3.5-5.1) mmol/L Chloride 103 (98-107) mmol/L Carbon Dioxide 22.1 (21.0-32.0) mmol/L BUN 10 (7.0-18.0) mg/dL Creatinine 0.8 (0.6-1.0) mg/dL Est Cr Clr Drug Dosing TNP Estimated GFR (MDRD) > 60.0 ml/min Glucose 83 (74-106) mg/dL Uric Acid 5.4 (2.6-7.2) mg/dL Calcium 8.8 (8.5-10.1) mg/dL Total Bilirubin 0.4 (0.2-1.0) mg/dL AST 30 (15-37) IU/L ALT 43 (14-63) IU/L Alkaline Phosphatase 145 H (46-116) U/L Lactate Dehydrogenase 216 (81-234) U/L Total Protein 6.4 (6.4-8.2) g/dL Albumin 2.4 L (3.4-5.0) g/dL Globulin 4.0 (2.6-4.0) g/dL Albumin/Globulin Ratio 0.6 L (0.9-1.6) Blood Type O POSITIVE Antibody Screen NEGATIVE Med Orders - Current: Current Medications Acetaminophen (Acetaminophen 500 Mg Tab) 500 mg PO Q4H PRN PRN Reason: Pain (mild 1-3) Acetaminophen (Acetaminophen 500 Mg Tab) 1,000 mg PO Q4H PRN PRN Reason: Pain (mild 1-3) Benzocaine/Menthol (Benzocaine/Menthol 20%-0.5% [place] 78 Gm Cannister) 78 gm TOP ASDIRECTED PRN PRN Reason: Perineal Comfort Measure Bisacodyl (Bisacodyl 10 Mg Supp) 10 mg RECTAL ONETIME PRN PRN Reason: Constipation Docusate Sodium (Docusate Sodium 100 Mg Cap) 100 mg PO Q12H PRN PRN Reason: Constipation Emollient Ointment (Lanolin 100% Cream 7 Gm Tube) 0 gm TOP ASDIRECTED PRN PRN Reason: Sore Nipples Ibuprofen (Ibuprofen 400 Mg Tab) 400 mg PO Q4H PRN PRN Reason: Pain (mild 1-3) Ibuprofen (Ibuprofen 800 Mg Tab) 800 mg PO Q6H PRN PRN Reason: Cramping Oxycodone HCl (Oxycodone 5 Mg Tab) 5 mg PO Q2H PRN PRN Reason: Pain (severe 7-10) Witch Kristin (Witch Kristin Medicated Pads 40/Jar) 1 pad TOP ASDIRECTED PRN PRN Reason: comfort care Discontinued Medications Carboprost Tromethamine (Carboprost Tromethamine 250 Mcg/1 Ml Amp) 250 mcg IM ASDIRECTED PRN PRN Reason: Post Hemorrhage Oxytocin/Sodium Chloride (Oxytocin 30 Unit In Ns 0.9% 500 Ml Premix) 30 unit in 500 mls @ 999 mls/hr IV TITRATE TY Tranexamic Acid 1,000 mg/ (Sodium Chloride) 110 mls @ 660 mls/hr IV ONETIME PRN PRN Reason: Bleeding Lactated Ringer's (Ringers, Lactated) 1,000 mls @ 150 mls/hr IV ASDIRECTED TY Lidocaine HCl (Lidocaine 1% 50 Ml Mdv) 50 ml INJECT ONETIME PRN PRN Reason: Laceration repair Methylergonovine Maleate (Methylergonovine 0.2 Mg/1 Ml Amp) 0.2 mg IM ASDIRECTED PRN PRN Reason: Post Hemorrhage Misoprostol (Misoprostol 200 Mcg Tab) 200 mcg PO ONETIME PRN PRN Reason: Post Hemorrhage Nalbuphine HCl (Nalbuphine 10 Mg/1 Ml Vial) 10 mg IVPUSH Q1H PRN PRN Reason: Pain (severe 7-10) Ondansetron HCl (Ondansetron 4 Mg/2 Ml Sdv) 4 mg IVPUSH Q6H PRN PRN Reason: Nausea/Vomiting Sodium Chloride (Sodium Chloride 0.9% 10 Ml Syringe) 10 ml FLUSH ASDIRECTED PRN PRN Reason: Keep Vein Open Sodium Chloride (Sodium Chloride 0.9% 2.5 Ml Syringe) 2.5 ml FLUSH ASDIRECTED PRN PRN Reason: Keep Vein Open Sodium Chloride (Sodium Chloride 0.9% 10 Ml Sdv) 10 ml IV ASDIRECTED PRN PRN Reason: IV Use Sterile Water (Water For Irrigation,Sterile 1,000 Ml Container) 1,000 ml IRR ASDIRECTED PRN PRN Reason: delivery - Exam General: Alert, Oriented, Cooperative, No Acute Distress HEENT: Pupils Equal, Mucous Membr. Moist/[place] Neck: Supple Lungs: Clear to Auscultation, Normal Respiratory Effort Cardiovascular: Regular Rate, Regular Rhythm GI/Abdominal Exam: Normal Bowel Sounds, Soft, Non-Tender, No Organomegaly, No Distention (Female) Exam: Normal External Exam, Enlarged Uterus ( uterus, firm @U), Vaginal Bleeding (Moderate rubra lochia, no clots.) Back Exam: Normal Inspection, Full Range of Motion Extremities: Normal Inspection, Normal Range of Motion, Non-Tender, No Pedal Edema, Normal Capillary Refill Skin: Warm, Dry, Intact Neurological: No New Focal Deficit Psy/Mental Status: Alert, Normal Affect, Normal Mood - Problem List & Annotations (1) (spontaneous vaginal delivery) SNOMED Code(s): 493754941 Code(s): O80 - ENCOUNTER FOR FULL-TERM UNCOMPLICATED DELIVERY Status: Acute Priority: High Current Visit: Yes (2) Lactating mother SNOMED Code(s): 211040535, 573268188 Code(s): Z39.1 - ENCOUNTER FOR CARE AND EXAMINATION OF LACTATING MOTHER Status: Acute Priority: High Current Visit: Yes - Problem List Review Problem List Initiated/Reviewed/Updated: Yes - My Orders Last 24 Hours: My Active Orders 04/16/21 04:10 RPR (SYPHILIS SERO) W/ RFLX [REF] Routine TYPE AND SCREEN [BBK] Routine 04/16/21 04:15 CORONAVIRUS COVID-19 JOSELUIS [MOLEC] Stat 04/16/21 05:15 Patient Status [ADT] Routine May Shower [RC] ASDIRECTED Up ad Yareli [RC] ASDIRECTED Vital Signs [RC] PER UNIT ROUTINE Acetaminophen [Tylenol Extra Strength] 1,000 mg PO Q4H PRN Acetaminophen [Tylenol Extra Strength] 500 mg PO Q4H PRN Benzocaine/Menthol [Dermoplast Pain Relief 20%-0.5% [place]] 78 gm TOP ASDIRECTED PRN Docusate Sodium [Colace] 100 mg PO Q12H PRN Ibuprofen [Motrin] 400 mg PO Q4H PRN Ibuprofen [Motrin] 800 mg PO Q6H PRN Lanolin [Lansinoh HPA] See Dose Instructions TOP ASDIRECTED PRN bisacodyL [Dulcolax] 10 mg RECTAL ONETIME PRN oxyCODONE 5 mg PO Q2H PRN witch Kristin [Tucks] 1 pad TOP ASDIRECTED PRN Assess Lochia [WOMSER] Per Unit Routine Assess Uterine Involution [WOMSER] Per Unit Routine Peripheral IV Discontinue [OM.PC] Routine Resuscitation Status Routine 04/16/21 05:16 Cooling Warming Measures [RC] ASDIRECTED Ice Therapy [OM.PC] Per Unit Routine Perineal Care [OM.PC] Per Unit Routine Sitz Bath [OM.PC] Per Unit Routine 04/16/21 Breakfast Regular Diet [DIET] 04/17/21 05:00 HEMOGLOBIN/HEMATOCRIT,HH [HEME] Routine - Plan Plan:: Admit to inpatient unit immediately s/p of viable, term at 37+5 weeks gestation following spontaneous onset of labor and subsequent SROM. Continue regular diet. May ambulate with assistance once desired. If patient does not void within 4 hours, call provider. CBC/CMP unremarkable. Pre- Hgb 10.7, plan to start PO iron supplementation daily x 4-8 weeks. Plan to repeat H/H in 24 hours. See new orders. Dr. Morin notified and agreeable with POC.
[2021-04-16] MEDS: Ibuprofen 800 MG Tab PO PRN ×2 (06:11→21:05)
[2021-04-16] MEDS: Labetalol 100 MG Tab PO SCH ×3 (07:57→21:06)
[2021-04-16] MEDS: Aspirin 81 MG Tab.EC PO SCH ×2 (07:58→09:39)
[2021-04-16] MEDS: Lanolin 100% Cream 7 GM Tube TOP PRN (07:59)
[2021-04-16] MEDS ORDERED: Misoprostol 50 MCG (1/2 of 100 MCG) Tab ONE (08:26)
[2021-04-16] MEDS ORDERED: Misoprostol 200 MCG Tab ONE (08:29)
[2021-04-16] MEDS ORDERED: Carboprost Tromethamine 250 MCG/1 ML Amp ONE ×2 (08:34→08:49)
[2021-04-16] MEDS ORDERED: Oxytocin/0.9 % Sodium Chloride 30 UNIT/500 ML BAG ONE (08:50)
[2021-04-16] MEDS ORDERED: Morphine 4 MG/ML Syringe ONE (08:51)
[2021-04-16] MEDS ORDERED: ceFAZolin 2 GM in Premix Bag 1 BAG IV ONE (09:16)
[2021-04-16] MEDS: Docusate Sodium 100 MG Cap PO SCH ×2 (09:38→21:05)
[2021-04-16] MEDS: Iron Polysaccharides Complex 150 MG Cap PO SCH (09:39)
[2021-04-17] MEDS: Labetalol 100 MG Tab PO SCH (08:18)
[2021-04-17] MEDS: Iron Polysaccharides Complex 150 MG Cap PO SCH (08:19)
[2021-04-17] MEDS: Aspirin 81 MG Tab.EC PO SCH (08:19)
[2021-04-17] MEDS: Docusate Sodium 100 MG Cap PO SCH (08:20)
--- NOTE | 2021-04-17 09:01 | PCM.PNPP ---
- General Info Date of Service: 04/17/21 Functional Status: Reports: Pain Controlled - Review of Systems General: Reports: No Symptoms HEENT: Reports: No Symptoms Pulmonary: Reports: No Symptoms Cardiovascular: Reports: No Symptoms Gastrointestinal: Reports: No Symptoms Genitourinary: Reports: No Symptoms Musculoskeletal: Reports: No Symptoms Skin: Reports: No Symptoms Neurological: Reports: No Symptoms Psychiatric: Reports: No Symptoms - General Info Date of Service: 04/17/21 - Patient Data Vital Signs - Most Recent: Last Vital Signs Temp 36.7 C 04/17/21 07:58 Pulse 92 04/17/21 08:18 Resp 18 04/17/21 07:58 BP 123/95 H 04/17/21 08:18 Pulse Ox 99 04/17/21 07:58 Weight - Most Recent: 99.337 kg Lab Results - Last 24 Hours: Laboratory Results - last 24 hr 04/16/21 04/16/21 04/17/21 Range/Units 04:10 16:00 04:52 Hgb 9.0 L 7.3 L (12.0-16.0) g/dL Hct 28.2 L 23.3 L (36.0-46.0) % Blood Type O POSITIVE Antibody Screen NEGATIVE Crossmatch See Detail Med Orders - Current: Current Medications Acetaminophen (Acetaminophen 500 Mg Tab) 500 mg PO Q4H PRN PRN Reason: Pain (mild 1-3) Acetaminophen (Acetaminophen 500 Mg Tab) 1,000 mg PO Q4H PRN PRN Reason: Pain (mild 1-3) Last Admin: 04/16/21 06:12 Dose: 1,000 mg Documented by: Aspirin (Aspirin 81 Mg Tab.Ec) 81 mg PO DAILY [facility] Last Admin: 04/17/21 08:19 Dose: 81 mg Documented by: Benzocaine/Menthol (Benzocaine/Menthol 20%-0.5% [place] 78 Gm Cannister) 78 gm T OP ASDIRECTED PRN PRN Reason: Perineal Comfort Measure Last Admin: 04/16/21 07:58 Dose: 1 can Documented by: Bisacodyl (Bisacodyl 10 Mg Supp) 10 mg RECTAL ONETIME PRN PRN Reason: Constipation Docusate Sodium (Docusate Sodium 100 Mg Cap) 100 mg PO Q12H [facility] Last Admin: 04/17/21 08:20 Dose: 100 mg Documented by: Emollient Ointment (Lanolin 100% Cream 7 Gm Tube) 0 gm TOP ASDIRECTED PRN PRN Reason: Sore Nipples Last Admin: 04/16/21 07:59 Dose: 1 tube Documented by: Ibuprofen (Ibuprofen 400 Mg Tab) 400 mg PO Q4H PRN PRN Reason: Pain (mild 1-3) Ibuprofen (Ibuprofen 800 Mg Tab) 800 mg PO Q6H PRN PRN Reason: Cramping Last Admin: 04/16/21 21:05 Dose: 800 mg Documented by: Labetalol HCl (Labetalol 100 Mg Tab) 400 mg PO BID [facility] Last Admin: 04/17/21 08:18 Dose: 400 mg Documented by: Oxycodone HCl (Oxycodone 5 Mg Tab) 5 mg PO Q2H PRN PRN Reason: Pain (severe 7-10) Polysaccharide Iron Complex (Iron Polysaccharides Complex 150 Mg Cap) 150 mg PO DAILY [facility] Last Admin: 04/17/21 08:19 Dose: 150 mg Documented by: Katie Foster (Katie Foster Medicated Pads 40/Jar) 1 pad TOP ASDIRECTED PRN PRN Reason: comfort care Last Admin: 04/16/21 07:58 Dose: 1 tub Documented by: Discontinued Medications Carboprost Tromethamine (Carboprost Tromethamine 250 Mcg/1 Ml Amp) 250 mcg IM ASDIRECTED PRN PRN Reason: Post Hemorrhage Carboprost Tromethamine (Carboprost Tromethamine 250 Mcg/1 Ml Amp) Confirm Administered Dose 250 mcg .ROUTE .STK-MED ONE Stop: 04/16/21 08:35 Last Admin: 04/16/21 09:37 Dose: 250 mcg Documented by: Carboprost Tromethamine (Carboprost Tromethamine 250 Mcg/1 Ml Amp) Confirm Administered Dose 250 mcg .ROUTE .STK-MED ONE Stop: 04/16/21 08:50 Docusate Sodium (Docusate Sodium 100 Mg Cap) 100 mg PO Q12H PRN PRN Reason: Constipation Oxytocin/Sodium Chloride (Oxytocin 30 Unit In Ns 0.9% 500 Ml Premix) 30 unit in 500 mls @ 999 mls/hr IV TITRATE [facility] Last Admin: 04/16/21 04:45 Dose: 999 mls/hr Documented by: Tranexamic Acid 1,000 mg/ (Sodium Chloride) 110 mls @ 660 mls/hr IV ONETIME PRN PRN Reason: Bleeding Lactated Ringer's (Ringers, Lactated) 1,000 mls @ 150 mls/hr IV ASDIRECTED TY Last Admin: 04/16/21 03:03 Dose: 999 mls/hr Documented by: Oxytocin/Sodium Chloride (Oxytocin 30 Unit In Ns 0.9% 500 Ml Premix) Confirm Administered Dose 30 unit in 500 mls @ as directed .ROUTE .STK-MED ONE Stop: 04/16/21 08:51 Last Admin: 04/16/21 09:37 Dose: 999 mls/hr Documented by: Cefazolin Sodium/Dextrose 2 gm (/ Premix) 50 mls @ 100 mls/hr IV ONETIME ONE Stop: 04/16/21 09:45 Last Admin: 04/16/21 09:39 Dose: 100 mls/hr Documented by: Cefazolin Sodium/Dextrose (Ancef 2 Gm/50 Ml) Confirm Administered Dose 50 mls @ as directed .ROUTE .STK-MED ONE Stop: 04/16/21 09:21 Lidocaine HCl (Lidocaine 1% 50 Ml Mdv) 50 ml INJECT ONETIME PRN PRN Reason: Laceration repair Methylergonovine Maleate (Methylergonovine 0.2 Mg/1 Ml Amp) 0.2 mg IM ASDIRECTED PRN PRN Reason: Post Hemorrhage Misoprostol (Misoprostol 200 Mcg Tab) 200 mcg PO ONETIME PRN PRN Reason: Post Hemorrhage Misoprostol (Misoprostol 50 Mcg (1/2 Of 100 Mcg) Tab) Confirm Administered Dose 50 mcg .ROUTE .STK-MED ONE Stop: 04/16/21 08:27 Misoprostol (Misoprostol 200 Mcg Tab) Confirm Administered Dose 1,000 mcg .ROUTE .STK-MED ONE Stop: 04/16/21 08:30 Last Admin: 04/16/21 09:37 Dose: 1,000 mcg Documented by: Morphine Sulfate (Morphine 4 Mg/Ml Syringe) Confirm Administered Dose 4 mg .ROUTE .STK-MED ONE Stop: 04/16/21 08:52 Last Admin: 04/16/21 09:38 Dose: 4 mg Documented by: Nalbuphine HCl (Nalbuphine 10 Mg/1 Ml Vial) 10 mg IVPUSH Q1H PRN PRN Reason: Pain (severe 7-10) Ondansetron HCl (Ondansetron 4 Mg/2 Ml Sdv) 4 mg IVPUSH Q6H PRN PRN Reason: Nausea/Vomiting Sodium Chloride (Sodium Chloride 0.9% 10 Ml Syringe) 10 ml FLUSH ASDIRECTED PRN PRN Reason: Keep Vein Open Sodium Chloride (Sodium Chloride 0.9% 2.5 Ml Syringe) 2.5 ml FLUSH ASDIRECTED PRN PRN Reason: Keep Vein Open Sodium Chloride (Sodium Chloride 0.9% 10 Ml Sdv) 10 ml IV ASDIRECTED PRN PRN Reason: IV Use Sterile Water (Water For Irrigation,Sterile 1,000 Ml Container) 1,000 ml IRR ASDIRECTED PRN PRN Reason: delivery Tranexamic Acid (Tranexamic Acid 1,000 Mg/10 Ml Amp) Confirm Administered Dose 1,000 mg .ROUTE .[facility] ONE Stop: 04/16/21 08:28 Last Admin: 04/16/21 09:36 Dose: 1,000 mg Documented by: - Interaction Disposition, : in Room with Family Infant Interaction: Holding Infant Infant Feeding: Attempted ; Nursed Fair/Poor Support Person: Significant Other - Recovery Exam Fundal Tone: Firm Fundal Level: 1 Fingerbreadths Below Umbilicus Fundal Placement: Midline Lochia Amount: Scant Lochia Color: Rubra/Red Perineum Description: Intact, Minimal Bruising/Swelling Episiotomy/Laceration: None Bladder Status: Voiding Urinary Elimination: Voided - Exam General: Alert, Oriented HEENT: Pupils Equal Neck: Supple Lungs: Clear to Auscultation, Normal Respiratory Effort Cardiovascular: Regular Rate, Regular Rhythm GI/Abdominal Exam: Normal Bowel Sounds, Soft, Non-Tender, No Organomegaly, No Distention, No Abnormal Bruit, No Mass, Pelvis Stable Extremities: Normal Inspection, Normal Range of Motion, Non-Tender, No Pedal Edema, Normal Capillary Refill Skin: Warm, Dry, Intact Wound/Incisions: Healing Well Neurological: No New Focal Deficit Psy/Mental Status: Alert, Normal Affect, Normal Mood - Problem List Review Problem List Initiated/Reviewed/Updated: Yes - My Orders Last 24 Hours: My Active Orders 04/17/21 08:29 Transfuse RBC [Transfuse Red Blood Cells] [COMM] Routine - Assessment Assessment:: H/H is 7.3 the Pt. is symptomatic will transfuse 2 unit of PC. and then will be discharg home. - Plan Plan:: Admit to inpatient unit immediately s/p of viable, term at 37+5 weeks gestation following spontaneous onset of labor and subsequent SROM. Continue regular diet. May ambulate with assistance once desired. If patient does not void within 4 hours, call provider. CBC/CMP unremarkable. Pre- Hgb 10.7, plan to start PO iron supplementation daily x 4-8 weeks. Plan to repeat H/H in 24 hours. See new orders. Dr. Morin notified and agreeable with POC.
[2021-04-17] MEDS: Ibuprofen 800 MG Tab PO PRN (09:46)
[2021-04-17] MEDS: Lanolin 100% Cream 7 GM Tube TOP PRN (11:16)
[2021-04-17 13:47] VITALS: BP 148/91; PULSE 67
== END 2021-04-17 15:45 | disposition home or self-care (01) | DRG 560 ==
LOC: MW.OBCHECK 03:03 → MW.OB 03:04 → MW.OBCHECK 03:35 → OBSVTOIN 04:41 → MW.OB 08:20
PROVIDERS: ADMIT Obstetrics & Gynecology; ATTEND Obstetrics & Gynecology
PROC: 10E0XZZ Delivery of Products of Conception, External Approach (ICD-10-PCS; principal; 2021-04-16)
PROC: 30233N1 Transfusion of Nonautologous Red Blood Cells into Peripheral Vein, Percutaneous Approach (ICD-10-PCS; 2021-04-16)
DX: O16.4 Unspecified maternal hypertension, complicating childbirth (principal); Z37.0 Single live birth; Z3A.37 37 weeks gestation of pregnancy; Z20.822 Contact with and (suspected) exposure to COVID-19
CPT/HCPCS: 36415; 36430; 59025; 59409; 80053; 83615; 84550; 85014; 85018; 85027; 86592; 86850; 86900; 86901; 86920; 86921; 86922; A9270-GY; J0690; J2270; J2590; J7120; P9016; U0002